=== PATIENT | male | born 1950 | race Caucasian/White ===

== ENCOUNTER 2023-03-11 07:00 | Day surgery (SDC) | payer MEDICARE, BC ==
[~2023-03-11 07:00] MED LIST: Propofol 200 MG/20 ML SDV ONE
[2023-03-11] MEDS ORDERED: Lactated Ringers 1,000 ML IV SCH (07:30)
[2023-03-11 07:57] LABS: HEMATOCRIT 47.9 % (38.4-49.7); MEAN CORPUSCULAR HEMOGLOBIN 31.8 pg (31.6-35.5); MEAN CORPUSCULAR HGB CONC 35.5 g/dL (31.6-35.5); MEAN CORPUSCULAR VOLUME 89.7 fL (81.4-99.0); RED BLOOD CELL COUNT 5.34 M/uL (4.14-5.76); WHITE BLOOD CELL COUNT,WBC 7.6 K/uL (3.2-11.0)
[2023-03-11] MEDS ORDERED: Propofol 200 MG/20 ML SDV ONE (08:00)
[2023-03-11] MEDS ORDERED: Midazolam 1 MG/ML 2 ML SDV ONE (08:00)
[2023-03-11] MEDS ORDERED: fentaNYL 50 MCG/ML SDV ONE (08:00)
[2023-03-11 08:19] LABS: A/G RATIO 0.9 (1.2-2.2); ALANINE AMINOTRANSFERASE,ALT 69 U/L (12-78); ALBUMIN 3.6 g/dL (3.4-5.0); ALKALINE PHOSPHATASE 76 U/L (46-116); ASPARTATE AMNIOTRANSFERASE,AST 32 U/L (15-37); BILIRUBIN TOTAL 0.9 mg/dL (0.2-1.0); BLOOD UREA NITROGEN,BUN 12 mg/dL (7-18); CALCIUM 9.1 mg/dL (8.5-10.1); CARBON DIOXIDE,CO2 23 mmol/L (21-32); CHLORIDE,CL 102 mmol/L (100-108); CREATININE 0.9 mg/dL (0.8-1.3); EST CRCL DRUG DOSING (CG) 85.08 mL/min; ESTIMATED GFR 91 mL/min (>60); GLUCOSE RANDOM 115 mg/dL (74-106); POTASSIUM,K 3.3 mmol/L (3.6-5.2); PROTEIN TOTAL,TP 7.6 g/dL (6.4-8.2); SODIUM,NA 136 mmol/L (140-148)
[2023-03-11 08:21] LABS: ANION GAP 14.3 mmol/L (5.0-14.0)
[2023-03-11] MEDS ORDERED: Potassium Chloride 10 MEQ in Premix Bag 1 BAG IV SCH (09:00)
[2023-03-11] MEDS ORDERED: LIDOCAINE 1% IV ONE (10:00)
[2023-03-11] MEDS ORDERED: POTASSIUM CHLORIDE IV ONE (10:00)
[2023-03-11] MEDS ORDERED: SODIUM CHLORIDE 0.9% IV ONE (10:00)
== END 2023-03-11 11:45 | disposition home or self-care (01) ==
LOC: JP.SDS 07:00
PROVIDERS: ATTEND Student in an Organized Health Care Education/Training Program
DX: Z12.11 Encounter for screening for malignant neoplasm of colon (principal); K29.50 Unspecified chronic gastritis without bleeding; K25.9 Gastric ulcer, unspecified as acute or chronic, without hemorrhage or perforation; K44.9 Diaphragmatic hernia without obstruction or gangrene; I10 Essential (primary) hypertension; Z87.09 Personal history of other diseases of the respiratory system; Z79.899 Other long term (current) drug therapy; Z88.5 Allergy status to narcotic agent
CPT/HCPCS: 36415; 43239; 45378; 80053; 85027; 88305; 88342; 93005; 93010; J2250; J2704; J3010; J3480; J3490; J7120

== ENCOUNTER 2023-08-24 07:43 | Day surgery (SDC) | payer MEDICARE, BC ==
[~2023-08-24 07:43] MED LIST changes: +fentaNYL 100 MCG/2 ML SDV ONE
[2023-08-24] MEDS ORDERED: Sodium Chloride 0.9% 1,000 ML IV SCH (08:30)
[2023-08-24] MEDS ORDERED: Lactated Ringers 1,000 ML IV SCH (08:30)
== END 2023-08-24 10:55 | disposition home or self-care (01) ==
LOC: JP.SDS 07:43
PROVIDERS: ATTEND Student in an Organized Health Care Education/Training Program
DX: K29.70 Gastritis, unspecified, without bleeding (principal); K25.9 Gastric ulcer, unspecified as acute or chronic, without hemorrhage or perforation; K44.9 Diaphragmatic hernia without obstruction or gangrene
CPT/HCPCS: 43239; 88305; J2704; J3010; J7030